=== PATIENT | female | born 1990 | race Caucasian/White ===

== ENCOUNTER 2019-09-11 05:03 | Inpatient (IN) | payer BC ==
[2019-09-11 05:40] VITALS: BMI 28.0
[2019-09-11] MEDS ORDERED: Lidocaine 1% (PF) 30 ML VIAL SC PRN (11:28)
[2019-09-11] MEDS ORDERED: Misoprostol 200 MCG TAB PR PRN (11:28)
[2019-09-11] MEDS ORDERED: Butorphanol Tartrate 1 MG/ML VIAL SLOW IVP PRN (11:28)
[2019-09-11] MEDS ORDERED: HYDROcodone/Acetaminophen 5/325 mg Tablet PO PRN ×2 (11:28)
[2019-09-11] MEDS ORDERED: hydrALAZINE 20 MG/ML VIAL SLOW IVP PRN (11:28)
[2019-09-11] MEDS ORDERED: Ibuprofen 800 MG TAB PO PRN (11:28)
[2019-09-11] MEDS ORDERED: Ondansetron PF 4 MG/2 ML Vial IVP PRN ×2 (11:28→21:25)
[2019-09-11] MEDS ORDERED: Methylergonovine 0.2 MG/ML VIAL IM PRN (11:28)
[2019-09-11] MEDS ORDERED: Promethazine HCl 25 MG/ML VIAL IM PRN ×2 (11:28→21:25)
[2019-09-11 12:35] LABS: Mean Corpuscular HGB CONC 34.8 g/dL (32.0-36.0); Mean Corpuscular Hemoglobin 33.2 pg (27.0-31.0); Mean Corpuscular Volume 95.3 fL (78.0-98.0); Mean Platelet Volume 8.2 fL (7.4-10.4); Platelet Count 147 thou/uL (130-400); RBC Distribution Width 11.9 % (11.5-14.5); Red Blood Cell (RBC) Count 3.63 mill/uL (4.20-5.40); White Blood Cell (WBC) Count 11.1 thou/uL (4.8-10.8)
[2019-09-11 13:31] LABS: Syphilis Antibody Nonreactive (Nonreactive); Syphilis Antibody Index 0.06 S/CO (<1.00 Non-Reactive)
[2019-09-11 13:32] LABS: HBSAg Index 0.27 S/CO (0-0.99); Hep B Surf Ag Non-Reactive S/CO (NonReactive)
[2019-09-11] MEDS ORDERED: Bupivacaine 0.25% HCL 30 ML VIAL ONE (13:38)
--- NOTE | 2019-09-11 15:39 | PDOC.LDHP ---
Labor and Delivery H&P Chief complaint: contractions HPI: Patient started having very mild cramps and contractions after her membrane sweep just after leaving the clinic yesterday. she was able to sleep but was woken up at midnight with stronger contractions than she had experienced thusfar. She notified me, Hazel Carter CNM, her primary provider of her contractions. She stayed home until her contractions were every 4 mins and then headed to the hospital. She denies LOF but does reports some bloody show. Current gestational age (weeks): 41 Due date: 09/01/19 Dating criteria: last menstrual period (verified with 8w3d ultrasound) Grav: 1 Para: 0 Current complications: none Abnormal US findings: No Current medications: pre- vitamins Previous surgical history: appendectomy (2001) Allergies/Adverse Reactions: Allergies Allergy/AdvReac Type Severity Reaction Status Date / Time No Known Allergies Allergy Verified 09/11/19 05:33 Social history: none - Physical Exam Vital signs reviewed and normal: yes General: NAD Lungs: nonlabored breathing Abdomen: gravid FHT: category 1 - Vaginal Exam cm dilated: 3 Effacement: 90% Station: -1 - OB Labs Blood type: B RH: negative Antibody Screen: negative HIV: negative RPR: negative HEPSAg: negative 1 hour GCT: negative GBS: negative Urine drug screen: negative Rubella: immune - Assessment L&D Assessment: term patient in labor - Plan Plan: admit to L&D
[2019-09-11] MEDS ORDERED: Fentanyl 4 mcg/Bup 0.1% Cadd 100 ML ONE (20:40)
[2019-09-11] MEDS ORDERED: FLU VACC QS2019-20(6MOS UP)/PF 60 MCG/0.5 ML SYRINGE IM ONE (21:00)
[2019-09-11] MEDS ORDERED: Naloxone HCl 0.4 mg/ml Vial IVP PRN ×2 (21:25)
[2019-09-11] MEDS ORDERED: Acetaminophen 325 MG TAB PO PRN (21:25)
[2019-09-11] MEDS ORDERED: diphenhydrAMINE 50 MG/ML VIAL IVP PRN (21:25)
[2019-09-11] MEDS ORDERED: Lactated Ringer's 500 ML IV PRN (21:25)
[2019-09-11] MEDS ORDERED: ePHEDrine/0.9% NaCl/PF SYRINGE 50 mg/10 ml SLOW IVP PRN (21:25)
[2019-09-11] MEDS ORDERED: Communication Order-Pharmacy FS SCH (21:30)
[2019-09-11] MEDS ORDERED: Fentanyl 4 mcg/Bupivacaine 0.1% Cassette 100 ML EPIDURAL SCH (21:30)
[2019-09-11] MEDS: Lactated Ringer's 1,000 ML IV PRN (21:37)
[2019-09-12] MEDS ORDERED: NS w/ Oxytocin 10 units 500 ML IV SCH (00:15)
[2019-09-12] MEDS: Dextrose 5%-Lactated Ringers 1,000 ML IV SCH ×2 (00:40→23:21)
[2019-09-12] MEDS: Lactated Ringer's 1,000 ML IV PRN (03:01)
[2019-09-12] MEDS: NS / Oxytocin 40 units/1000ml 1,000 ML IV PRN ×2 (09:35→10:06)
--- NOTE | 2019-09-12 12:00 | PDOC.OPDEL ---
OB Operative/Delivery Note Delivery Dr/Surgeon: Gayle Carter Pre-Delivery Diagnosis: active labor Procedure/Post Delivery Dx: spontaneous vaginal delivery Weeks gestation: 41 (4) Anesthesia: epidural - Findings A Sex: female Weight: 3348 lb - 1 min: 8 - 5 min: 9 - Additional Findings/Plan Repaired Obstetrical Laceration: vaginal (midline vaginal tear and right sulcus. ) Estimated blood loss: [id number] Compilations/Other Findings: Hemorrhaging from laceration. Deep figure of eight sutures placed on posterior vaginal wall Post delivery plan: routine recovery
[2019-09-12] MEDS ORDERED: Benzocaine-Menthol 82.5 ML CAN TOP PRN (12:07)
[2019-09-12] MEDS ORDERED: Lanolin Ointment 7 GM TUBE TOP PRN (12:07)
[2019-09-12] MEDS ORDERED: Milk Of Magnesia 30 ML UDCUP PO PRN (12:07)
[2019-09-12] MEDS ORDERED: hydrALAZINE 20 MG/ML VIAL SLOW IVP PRN (12:07)
[2019-09-12] MEDS ORDERED: Methylergonovine 0.2 MG/ML VIAL IM PRN (12:07)
[2019-09-12] MEDS ORDERED: HYDROcodone/Acetaminophen 5/325 mg Tablet PO PRN ×2 (12:07)
[2019-09-12] MEDS ORDERED: Adacel (T-DAP) 0.5 ML SYRINGE IM ONE (12:07)
[2019-09-12] MEDS ORDERED: NS / Oxytocin 40 units/1000ml 1,000 ML IV SCH (12:07)
[2019-09-12] MEDS ORDERED: Bisacodyl 10 MG SUPP PR PRN (12:07)
[2019-09-12] MEDS: Ibuprofen 800 MG TAB PO SCH ×2 (12:31→21:49)
[2019-09-12] MEDS: Ferrous Sulfate 325 MG TAB PO SCH (17:04)
[2019-09-12] MEDS: Docusate Calcium (SURFAK) 240 MG CAP PO SCH (21:49)
[2019-09-13] MEDS ORDERED: Sodium Chloride 0.9% 10 ML ONE (00:35)
[2019-09-13] MEDS: Ibuprofen 800 MG TAB PO SCH ×2 (05:42→15:12)
[2019-09-13 05:58] LABS: #Eosinphils 0.1 thou/uL (0.0-0.7); #Lymphocytes 1.7 thou/uL (1.20-3.40); #Monocytes 0.9 thou/uL (0.11-0.59); %Basophils 0.2 % (0.0-1.0); %Eosinophils 0.5 % (0.0-10.0); %Lymphocytes 11.6 % (21.0-51.0); %Monocytes 5.9 % (0.0-10.0); %Neutrophils 81.9 % (42.0-75.0); Hemoglobin 8.2 g/dL (12.0-16.0); Mean Corpuscular HGB CONC 34.1 g/dL (32.0-36.0); Mean Corpuscular Hemoglobin 32.4 pg (27.0-31.0); Mean Platelet Volume 7.9 fL (7.4-10.4); Platelet Count 125 thou/uL (130-400); Platelet Morphology Comment Appears Decreased; Red Blood Cell (RBC) Count 2.53 mill/uL (4.20-5.40); White Blood Cell (WBC) Count 14.6 thou/uL (4.8-10.8)
[2019-09-13 08:32] VITALS: BP 93/50; TEMP 98.2
[2019-09-13] MEDS ORDERED: Prenatal Vitamin 1 TAB PO SCH (09:00)
[2019-09-13] MEDS: Docusate Calcium (SURFAK) 240 MG CAP PO SCH (10:00)
[2019-09-13] MEDS: Ferrous Sulfate 325 MG TAB PO SCH ×2 (13:07→15:12)
--- NOTE | 2019-09-13 15:55 | PDOC.PP ---
Post Progress Note Post Day #: 1 Subjective: patient is doing ok. Her vagina is still swollen and painful. She is also having some trouble , it is hurting and her baby is wanting to eat all the time. She deisn syncope or dizziness PO intake tolerated: yes Flatus: yes Ambulation: yes Vital Signs (12 hours) Temp Pulse Resp BP Pulse Ox 09/13/19 08:29 98.2 F 79 20 93/50 L 99 09/13/19 04:20 97.9 F 67 18 98/50 L Weight Weight 174 lb - Physical Examination General: NAD Cardiovascular: no m/r/g Respiratory: non-labored breathing Abdominal: lochia Perineum: edema, Psychiatric: A&Ox3, normal affect Result Diagrams: 09/13/19 05:16 Additional Labs: Post Labs Blood Type A NEGATIVE 09/11/19 12:52 Hep Bs Antigen Non-Reactive S/CO (NonReactive) 09/11/19 12:17 (1) (spontaneous vaginal delivery) Code(s): O80 - ENCOUNTER FOR FULL-TERM UNCOMPLICATED DELIVERY Status: Acute (2) PPH ( hemorrhage) Code(s): O72.1 - OTHER IMMEDIATE HEMORRHAGE Status: Acute (3) Vaginal laceration Code(s): S31.41XA - LACERATION W/O FOREIGN BODY OF VAGINA AND VULVA, INIT ENCNTR Status: Acute - Assessment/Plan A: at s/p at 41.3 days with Nml exam D: discharge home today
== END 2019-09-13 18:05 | disposition home or self-care (01) | DRG 806 ==
LOC: L&D/OP 05:03 → L&D-LIB 11:38 → L&D 09-12 00:52 → 3SW 09-12 13:09
PROVIDERS: ADMIT Obstetrics & Gynecology; ATTEND Obstetrics & Gynecology
PROC: 3E02340 Introduction of Influenza Vaccine into Muscle, Percutaneous Approach (ICD-10-PCS; 2019-09-11)
PROC: 10E0XZZ Delivery of Products of Conception, External Approach (ICD-10-PCS; principal; 2019-09-13)
PROC: 0HQ9XZZ Repair Perineum Skin, External Approach (ICD-10-PCS; 2019-09-13)
DX: O48.0 Post-term pregnancy (principal); Z23 Encounter for immunization; O72.1 Other immediate postpartum hemorrhage; O70.0 First degree perineal laceration during delivery; Z37.0 Single live birth; Z3A.41 41 weeks gestation of pregnancy; Z90.49 Acquired absence of other specified parts of digestive tract
CPT/HCPCS: 36415; 51702; 85025; 85027; 85461; 86780; 86850; 86870; 86900; 86901; 87340; 90384; 96372; 99285; J2405; S0020